=== PATIENT | male | born 1980 | race Caucasian/White ===

== ENCOUNTER 2020-12-18 05:40 | Emergency (ER) | payer OTHER ==
[~2020-12-18 05:40] MED LIST: BACTRIM DS TAB1 EACH PO; CIPRO500 MG PO; PERCOCET 5-3251 EACH PO; ZOFRAN8 MG PO
[2020-12-18 06:14] LABS: BASOPHIL 0.3 % (0-2); HCT 39.5 % (42.0-52.0); HGB 13.8 g/dl (13.2-18.0); LYMPHOCYTE 28.8 % (15-48); MCHC 34.9 g/dL (32.0-36.0); MCV 91.6 fL (78.0-100.0); MPV 9.1 fL (6.0-9.5); NEUTROPHIL 60.7 % (41-80); NRBC 0; PLT 247 K/uL (150-400); RBC 4.31 M/uL (4.70-6.00); RDW 11.9 % (11.5-14.0)
[2020-12-18 06:30] LABS: BUN/CREAT RATIO (CALC) 14.2 RATIO; CREATININE 1.06 mg/dL (0.67-1.17); POTASSIUM 3.3 mmol/L (3.5-5.1)
[2020-12-18] MEDS ORDERED: FLOMAX 0.4 MG0.4 MG PO (06:52)
[2020-12-18] MEDS ORDERED: HYDROCODON-ACE1 EAC2 PO (06:52)
[2020-12-18 06:58] LABS: BILIRUBIN NEGATIVE (NEGATIVE); BLOOD TRACE-INTACT Ery/uL (NEGATIVE); CLARITY CLEAR (CLEAR); COLOR YELLOW (YELLOW); GLUCOSE (U) NORMAL (NORMAL); LEUKOCYTES NEGATIVE Leu/uL (NEGATIVE); NITRITE NEGATIVE (NEGATIVE); PROTEIN 1+ mg/dL (NEGATIVE); SPECIFIC GRAVITY 1.025 (1.001-1.030); UROBILINOGEN 0.2 mg/dL (0.2-1.0)
[2020-12-18 07:21] LABS: BACTERIA TRACE; URINARY WBC RARE
[2020-12-18 07:22] LABS: SQUAMOUS EPITHELIAL CELLS RARE
== END 2020-12-18 07:06 | disposition home or self-care (01) ==
LOC: FER 05:40
PROVIDERS: Emergency Medicine
DX: N20.0 Calculus of kidney (principal); F17.290 Nicotine dependence, other tobacco product, uncomplicated; Z88.2 Allergy status to sulfonamides
CPT/HCPCS: 36415; 80048; 81001; 85025; J1885; J2405

== ENCOUNTER 2021-03-10 04:57 | Emergency (ER) | payer OTHER ==
[~2021-03-10 04:57] MED LIST changes: +FLOMAX 0.4 MG0.4 MG PO; +HYDROCODON-ACE1 EAC2 PO
[2021-03-10 06:22] LABS: BILIRUBIN NEGATIVE (NEGATIVE); BLOOD 1+ Ery/uL (NEGATIVE); CLARITY CLEAR (CLEAR); COLOR YELLOW (YELLOW); GLUCOSE (U) NORMAL (NORMAL); LEUKOCYTES NEGATIVE Leu/uL (NEGATIVE); NITRITE NEGATIVE (NEGATIVE); PROTEIN NEGATIVE (NEGATIVE); UROBILINOGEN 0.2 mg/dL (0.2-1.0)
[2021-03-10 06:30] LABS: BASOPHIL 0.3 % (0-2); EOSINOPHIL 1.8 % (0-5); HCT 37.3 % (42.0-52.0); HGB 13.3 g/dl (13.2-18.0); LYMPHOCYTE 15.7 % (15-48); MCHC 35.7 g/dL (32.0-36.0); MCV 89.7 fL (78.0-100.0); MONOCYTE 4.4 % (0-12); MPV 8.9 fL (6.0-9.5); NEUTROPHIL 77.5 % (41-80); NRBC 0; PLT 251 K/uL (150-400); RBC 4.16 M/uL (4.70-6.00); RDW 11.9 % (11.5-14.0); WBC 11.5 K/uL (4.0-10.5)
[2021-03-10 06:43] LABS: URINARY WBC RARE
[2021-03-10 06:45] LABS: ALBUMIN 3.9 g/dL (3.4-5.0); BILIRUBIN - TOTAL 0.5 mg/dL (0.2-1.0); CREATININE 1.07 mg/dL (0.67-1.17); GLOBULIN (CALCULATION) 3.5 g/dL; PHOSPHORUS 2.3 mg/dL (2.6-4.7); POTASSIUM 3.9 mmol/L (3.5-5.1); TOTAL PROTEIN 7.4 g/dL (6.4-8.2)
[2021-03-10] MEDS ORDERED: ONDANSETRON ODT4 MG PO (07:23)
[2021-03-10] MEDS ORDERED: VICODIN 10/3251 EACH PO (07:24)
== END 2021-03-10 09:35 | disposition home or self-care (01) ==
LOC: FER 04:57
PROVIDERS: Emergency Medicine Emergency Medical Services
DX: N13.2 Hydronephrosis with renal and ureteral calculous obstruction (principal); F17.290 Nicotine dependence, other tobacco product, uncomplicated; Z88.2 Allergy status to sulfonamides; Z98.890 Other specified postprocedural states
CPT/HCPCS: 36415; 80053; 81001; 84100; 85025; J1170; J1885; J2270; J2405; J7030

== ENCOUNTER 2021-03-21 20:38 | Emergency (ER) | payer OTHER ==
[~2021-03-21 20:38] MED LIST changes: +ONDANSETRON ODT4 MG PO; +VICODIN 10/3251 EACH PO
[2021-03-21 21:33] LABS: BASOPHIL 0.4 % (0-2); EOSINOPHIL 2.8 & (0-5); HCT 35.4 % (42.0-52.0); HGB 12.8 g/dl (13.2-18.0); LYMPHOCYTE 19.3 % (15-48); MCHC 36.2 g/dL (32.0-36.0); MCV 88.5 fL (78.0-100.0); MONOCYTE 5.5 % (0-12); MPV 8.7 fL (6.0-9.5); PLT 240 K/uL (150-400); RDW 11.8 % (11.5-14.0); WBC 11.89 K/uL (4.0-10.5)
[2021-03-21 21:51] LABS: ALBUMIN 4.1 g/dL (3.4-5.0); BILIRUBIN - TOTAL 0.6 mg/dL (0.2-1.0); BUN/CREAT RATIO (CALC) 15.5 RATIO; CREATININE 1.1 mg/dL (0.67-1.17); GLOBULIN (CALCULATION) 3.2 g/dL; POTASSIUM 3.9 mmol/L (3.5-5.1); TOTAL PROTEIN 7.3 g/dL (6.4-8.2)
[2021-03-21 23:26] LABS: CLARITY CLEAR (CLEAR); COLOR YELLOW (YELLOW); PROTEIN 1+ mg/dL (NEGATIVE); SPECIFIC GRAVITY 1.025 (1.001-1.030)
[2021-03-21 23:27] LABS: BILIRUBIN NEGATIVE (NEGATIVE); BLOOD 2+ Ery/uL (NEGATIVE); GLUCOSE (U) NORMAL (NORMAL); LEUKOCYTES 1+ Leu/uL (NEGATIVE); NITRITE NEGATIVE (NEGATIVE); UROBILINOGEN 0.2 mg/dL (0.2-1.0)
[2021-03-21 23:31] LABS: SQUAMOUS EPITHELIAL CELLS RARE
[2021-03-22] MEDS ORDERED: HYDROCODON-ACE1 EAC6 PO (01:19)
== END 2021-03-22 02:12 | disposition home or self-care (01) ==
LOC: FER 20:38
PROVIDERS: Emergency Medicine Emergency Medical Services
DX: N13.2 Hydronephrosis with renal and ureteral calculous obstruction (principal); Z98.890 Other specified postprocedural states; Z88.2 Allergy status to sulfonamides
CPT/HCPCS: 36415; 80053; 81001; 85025; J1170; J1885; J2405; J7030